=== PATIENT | male | born 1970 | race Caucasian/White ===

== ENCOUNTER → 2016-10-03 | Outpatient (CLI) | payer BC ==
[~2016-10-03] MED LIST: CELEXA20 MG PO; CIPROFLOXACIN2.5 ML OD; ENALAPRIL MALEA10 MG PO; GEODON60 MG PO; MOTRIN600 M2 PO; NO MEDICATIONS; NORVASC10 MG PO; PRAVACHOL20 MG PO; ROBAXIN500 MG PO; TRIAMCINOLONE AC1 GM EXT; VOLTAREN75 MG PO; ZYRTEC10 M2 PO
--- NOTE | ~2016-10-03 | MR176 ---
[facility] A Service of [facility] & [facility] RADIOLOGY TEXT RESULTS PATIENT: POOJA HOLLEY JR LOCATION: [facility] : 72 UNIT #: [id number] AGE: [address]: SETH MONTEMAYOR APRN SEX: M ORDER DR: [id number] [facility] [address] [place], [place] [address] [id number] MR#: [id number] Acc #: [id number] NAME: POOJA HOLLEY : 1970 SEX: M STUDY DATE/TIME: 10/03/2016 16:55 UNIT: [facility] ROOM: STUDY DESCRIPTION: MR Thoracic Wo Contrast Attending Physician: Beto Laws Referring Physician: Beto Laws Ordering Physician: Physician Non-Staff Primary Care Physician: Beto Laws MRI CENTER REPORT This report is preliminary unless electronic signature is present. EXAM Thoracic spine MRI without HISTORY Mid-back pain for 20 years with numbness in both arms. No known injury. Patient states bulging discs. Pinched nerves. 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 No history of surgery or cancer. COMMENT MRI of the thoracic spine was performed without contrast using routine 1.5T imaging technique. No previous study of the thoracic spine. Sagittal alignment is normal. Thoracic marrow signal intensity is normal. Partly seen are some marrow endplate degenerative changes at C6-7. There is cervical degenerative disease which is not studied on the thoracic spine MRI and seen only on the sagittal localizer. Given arm complaints, consider correlation with a cervical spine MRI as well if not recently performed elsewhere. There is a component of epidural lipomatosis with the posterior dural fat pad measuring up to about 8 mm mid thoracic spine. Thoracic cord is normal in size and signal intensity. At T5-6, there is a small protrusion central to right paramedian with mild effacement of the anterior thecal sac but no significant central canal stenosis. At T6-7, there is left paramedian protrusion with mild flattening of the left anterolateral thecal sac but no canal stenosis. At T7-8, similar small left paramedian protrusion with mild flattening of the left anterior thecal sac but no canal stenosis. At T8-9, there are small bilateral posterolateral protrusions without significant canal stenosis. Multilevel mild facet arthritis is present. No obvious foraminal compromise. [facility] A Service of [facility] & [facility] RADIOLOGY TEXT RESULTS PATIENT: POOJA HOLLEY JR LOCATION: [facility] : 72 UNIT #: [id number] AGE: [address]: SETH MONTEMAYOR APRN SEX: M ORDER DR: IMPRESSION 1. Multilevel mild thoracic degenerative changes are noted. There is no significant thoracic canal stenosis. There is a component of epidural lipomatosis centered at the mid thoracic spine. Alignment is normal and thoracic cord is normal in size and signal intensity. 2. Partly seen on sagittal imaging is some degenerative change in the cervical spine. If there has not been a recent study of the cervical spine elsewhere, I would suggest MRI of the cervical spine for better evaluation. Dictated by... Nataly Walters M.D. THIS IS AN ELECTRONICALLY VERIFIED REPORT Nataly Walters M.D. at 10/04/2016 2:56 PM [place] TD: 10/04/2016 12:25 JOB #: [id number] MRI CENTER REPORT Page 1 of 1 COPY
== END | disposition home or self-care (01) ==
LOC: CMRI 16:35
DX: M54.6 Pain in thoracic spine (principal); G89.29 Other chronic pain; M47.894 Other spondylosis, thoracic region; E88.2 Lipomatosis, not elsewhere classified; M47.892 Other spondylosis, cervical region
CPT/HCPCS: 72146